=== PATIENT | male | born 1990 | race Caucasian/White ===

== ENCOUNTER → 2016-11-27 | Outpatient (CLI) | payer BC, OTHER ==
[~2016-11-27] MED LIST: ASCO10003 PO; VALA500T60 PO
== END | disposition home or self-care (01) ==
LOC: C.RDSM 11:58
PROVIDERS: ATTEND Family Medicine Sports Medicine
DX: M25.571 Pain in right ankle and joints of right foot (principal); M79.671 Pain in right foot

== ENCOUNTER → 2017-01-19 | Outpatient (CLI) | payer BC, OTHER ==
--- NOTE | 2017-01-19 16:27 | DIAGNOSTIC IMAGING REPORT ---
ORBIT RADIOGRAPHS 3 VIEWS HISTORY: pre-MRI screening. COMPARISON: None. FINDINGS: There are no radiopaque foreign bodies identified within the orbits. IMPRESSION: No radiopaque foreign bodies identified within the orbits. Electronically signed by: Jayme Connor M.D. 01/19/2017 4:26 PM Dictated Date/Time: 01/19/2017 4:26 PM
--- NOTE | 2017-01-19 17:21 | DIAGNOSTIC IMAGING REPORT ---
RIGHT KNEE MRI HISTORY: Right knee pain. COMPARISON STUDY: None. TECHNIQUE: Multiplanar multisequence MRI of the right knee was performed according to standard department protocol without the use of contrast. FINDINGS: Menisci: The lateral meniscus is intact. There is a diminutive appearance to the body of the medial meniscus consistent with a complex tear. Ligaments: Thickening and abnormal signal throughout the ACL. There appears be focal area of discontinuity within the proximal ACL. Therefore, this is consistent with a full-thickness ACL tear. The PCL and LCL are intact. There is mild thickening and a small focus of increased signal within the proximal to mid MCL. This is consistent with a low-grade partial tear. Extensor mechanism: The quadriceps tendon and patellar ligament are intact. Articular cartilage and bone: The articular cartilage is intact, and normal marrow signal intensity is seen throughout the imaged osseous structures. Joint effusion: Small. Soft tissues: Intact. IMPRESSION: 1. A complex tear within the body of the medial meniscus. 2. Full-thickness ACL tear. 3. Low-grade partial tear of the MCL. 4. Small joint effusion. Electronically signed by: Jayme Connor M.D. 01/19/2017 5:20 PM Dictated Date/Time: 01/19/2017 5:13 PM
== END | disposition home or self-care (01) ==
LOC: C.MRIBC 15:57
PROVIDERS: ATTEND Physical Medicine & Rehabilitation Sports Medicine
DX: S83.231A Complex tear of medial meniscus, current injury, right knee, initial encounter (principal); S83.511A Sprain of anterior cruciate ligament of right knee, initial encounter; S83.411A Sprain of medial collateral ligament of right knee, initial encounter; X58.XXXA Exposure to other specified factors, initial encounter; Z01.89 Encounter for other specified special examinations